=== PATIENT | female | born 1995 | race African-American/Black ===

== ENCOUNTER 2017-01-31 09:11 | Emergency (ER) | payer SELFPAY | END 2017-01-31 09:43 | disposition home or self-care (01) | LOC: NAV ERS 09:11 | DX: H66.92 Otitis media, unspecified, left ear (principal) | CPT/HCPCS: 99282 ==

== ENCOUNTER 2019-10-12 10:25 | Emergency (ER) | payer MEDICAID | END 2019-10-12 10:46 | disposition home or self-care (01) | LOC: NAV ERS 10:25 | DX: R05 Cough (principal) | CPT/HCPCS: 99281 ==